=== PATIENT | male | born 1990 | race Two or more races ===

== ENCOUNTER 2017-10-24 22:40 | Emergency (ER) | payer OTHER ==
[~2017-10-24] VITALS: Ht 172.7 cm; Wt 59.0 kg
[~2017-10-24 22:40] MED LIST: CEPH500C24 PO; HYDR-4309 PO
[2017-10-24 22:45] VITALS: BP 127/71
--- NOTE | 2017-10-24 23:01 | ER Report ---
History and Physical Time Seen By MD: 22:50 Hx. of Stated Complaint: C/O SORE THORAT, LEFT EAR PAIN. SINUS PRESSURE HPI/ROS CHIEF COMPLAINT: Left ear pain HISTORY OF PRESENT ILLNESS: 27-year-old male presents ambulatory to the ER complaining of left ear pain, sore throat for 3 days. Patient describes illness and chills. He's had no fevers. Patient's had no drainage from his ear. Patient notes no difficulty swallowing. He's had no cough. He's had no nausea or vomiting. He denies exposure to ill contacts. REVIEW OF SYSTEMS: Respiratory: No cough, no dyspnea. Cardiovascular: No chest pain, no palpitations. Gastrointestinal: No vomiting, no abdominal pain. Musculoskeletal: No back pain. Allergies: Coded Allergies: No Known Drug Allergies (Unverified , 10/24/17) Home Meds Active Scripts Amoxicillin (AMOXICILLIN) 500 Mg Capsule, 1 CAP PO Q8H for infection, #20 CAPSULE Prov:TORREYCARY Moody DO 10/24/17 Ibuprofen (IBUPROFEN) 600 Mg Tablet, 1 TAB PO Q6-8H Y for PAIN, #20 TAB Prov:CARY HIRSCH DO 10/24/17 Discontinued Scripts Cephalexin Monohydrate (CEPHALEXIN) 500 Mg Cap, 500 MG PO 3 times a day, #15 CAP TAKE 1 CAPSULE BY MOUTH EVERY SIX HOURS Prov:ALECIA FAULKNER DO 07/24/14 Hydrocodone Bit/Acetaminophen (NORCO 5-325 TABLET) 1 Each Tablet, 1 EACH PO Q6- 8H, #20 Prov:ALECIA FAULKNER DO 07/24/14 Past Medical/Surgical History Unremarkable Reviewed Nurses Notes: Yes Old Medical Records Reviewed: Yes Hx Smoking: No Smoking Status: Never Smoker Hx Substance Use Disorder: No Constitutional Vital Sign - Last 24 Hours 10/24/17 22:45 Temp 98.5 Pulse 90 Resp 14 B/P (MAP) 127/71 Pulse Ox 96 Physical Exam General Appearance: The patient is alert, has no immediate need for airway protection and no current signs of toxicity.. Vital signs stable, afebrile HEENT: Pupils equal and round no injection. TMs the left TM is erythematous and bulging, oropharynx without redness or exudate Respiratory: Chest is non tender, lungs are clear to auscultation. Cardiac: regular rate and rhythm Gastrointestinal: Abdomen is soft and non tender, no masses, bowel sounds normal. Musculoskeletal: Neck: Neck is supple and non tender. Positive lymphadenopathy Extremities have full range of motion and are non tender. Skin: No rashes or lesions. DIFFERENTIAL DIAGNOSIS: After history and physical exam differential diagnosis was considered for otitis media, TMJ, tooth abscess, pharyngitis, viral syndrome , sinusitis Medical Decision Making ED Course/Re-evaluation ED Course Patient was admitted to an examination room. H&P was done. The dental diagnoses was considered. On conical examination. Patient has appearance of left otitis media and pharyngitis. He does have some lymphadenopathy in the anterior cervical chain on examination. Patient will be covered with amoxicillin for otitis media. Given Motrin for pain. He is advised to follow- up with primary care if unimproved in 3-5 days. Decision to Disposition Date: Oct 24, 2017 Decision to Disposition Time: 23:07 Depart Departure Latest Vital Signs Vital Signs Date Time Temp Pulse Resp B/P (MAP) Pulse Ox O2 Delivery O2 Flow Rate FiO2 10/24/17 22:45 98.5 90 14 127/71 96 Impression: Primary Impression: Otitis media Additional Impression: Lymphadenopathy Condition: Improved Disposition: HOME OR SELF-CARE New Scripts Amoxicillin (AMOXICILLIN) 500 Mg Capsule 1 CAP PO Q8H for infection, #20 CAPSULE Prov: CARY HIRSCH DO 10/24/17 Ibuprofen (IBUPROFEN) 600 Mg Tablet 1 TAB PO Q6-8H Y for PAIN, #20 TAB Prov: CARY HIRSCH DO 10/24/17 Patient Instructions: Otitis Media (ED) Additional Instructions: Take prescriptions as prescribed Drink plenty of fluids Follow-up with your primary care physician if unimproved in 5-7 days Problem Qualifiers Primary Impression: Otitis media Otitis media type: suppurative Chronicity: acute Laterality: left Recurrence: not specified as recurrent Spontaneous tympanic membrane rupture: without spontaneous rupture Qualified Codes: H66.002 - Acute suppurative otitis media without spontaneous rupture of ear drum, left ear CARY HIRSCH DO Oct 24, 2017 23:01
[2017-10-24] MEDS ORDERED: AMOXICILLIN 500 MG CAP PO ONE (23:10)
[2017-10-24] MEDS ORDERED: IBUPROFEN 600 MG TAB TH PO ONE (23:10)
[2017-10-24] MEDS ORDERED: AMOX-362 PO (23:11)
[2017-10-24] MEDS ORDERED: IBUP600T22 PO (23:11)
== END 2017-10-24 23:30 | disposition home or self-care (01) ==
LOC: ER 22:44
DX: H66.002 Acute suppurative otitis media without spontaneous rupture of ear drum, left ear (principal); R59.1 Generalized enlarged lymph nodes
CPT/HCPCS: 99282

== ENCOUNTER 2018-01-15 22:01 | Emergency (ER) | payer OTHER ==
[~2018-01-15 22:01] MED LIST changes: +AMOX-362 PO; +IBUP600T22 PO
[2018-01-15 22:06] VITALS: BP 138/80
--- NOTE | 2018-01-15 22:12 | ER Report ---
History and Physical Time Seen By MD: 22:12 Hx. of Stated Complaint: PATIENT STATES THAT HE HAS HAD AND BAD SORE THROAT SINCE OCTOBER; PATIENT ALSO HAS LEFT SIDED EAR PAIN AND SWOLLEN LYMPH NODES; PATIENT STATES HE HAS HAD HEAD , NECK, AND BACK PAIN WELL HPI/ROS CHIEF COMPLAINT: Sore throat and ear pain HISTORY OF PRESENT ILLNESS: This is a 27-year-old male. He states he has had sore throat since October, couple of months now. Also left-sided ear pain and some swollen lymph nodes around the ear. He also is having muscle and joint aches, mainly describing neck and back pain as well as headache. He also has been having times when he feels hot and sweaty, and feels like these likely represent fever. He has tried using Tylenol and ibuprofen without significant relief. He denies shortness of breath, and no cough. He has a little bit of upper abdominal pain at times but no nausea or vomiting. No problems with bowels or with urination. No rashes. Allergies: Coded Allergies: No Known Drug Allergies (Unverified , 01/15/18) Home Meds Active Scripts Acetaminophen With Codeine # 3 (TYLENOL WITH CODEINE #3 TABLET) 1 Each Tablet, 1 EACH PO Q4H, #8 TAB 0 Refills Prov:LG SALDANA MD 01/15/18 Amoxicillin/Pot Clav 875-125 Mg Tab (AUGMENTIN 875-125 TABLET) 1 Each Tablet, 1 TAB PO Q12H, #20 TAB 0 Refills Prov:LG SALDANA MD 01/15/18 Amoxicillin (AMOXICILLIN) 500 Mg Capsule, 1 CAP PO Q8H for infection, #20 CAPSULE Prov:CARY HIRSCH DO 10/24/17 Ibuprofen (IBUPROFEN) 600 Mg Tablet, 1 TAB PO Q6-8H Y for PAIN, #20 TAB Prov:CARY HIRSCH DO 10/24/17 Reviewed Nurses Notes: Yes Hx Smoking: No Smoking Status: Never Smoker Hx Substance Use Disorder: No Constitutional Vital Sign - Last 24 Hours 01/15/18 22:06 Temp 98.1 Pulse 71 Resp 18 B/P (MAP) 138/80 Pulse Ox 98 O2 Delivery Room Air Physical Exam General Appearance: The patient is alert. No acute distress. Eyes: Pupils are equal, round. Reactive to light. No pallor, injection or icterus. Extraocular movements are intact. ENT: Mucous membranes are moist. Normal oral mucosa. Posterior oropharynx with some erythema, but no exudates or hypertrophy. Nasal mucosa with mild erythema. Normal tympanic membranes and canals. Mild erythema of the skin in the periaruicular area. Neck: Supple and non tender. Has left sided periauricular lymphadenopathy which is small but is tender. Some adenopathy in the left anterior cervical chain. Respiratory: Lungs are clear to auscultation. Cardiovascular: Regular rate and rhythm. No murmurs, gallops or rubs. Gastrointestinal: Abdomen is soft and non tender with some discomfort in the left upper abdomen. Nondistended. Normal active bowel sounds. Neurological: Alert and oriented x3. Skin: Warm and dry. Musculoskeletal: Extremities are nontender. DIFFERENTIAL DIAGNOSIS: After history and physical exam, differential diagnosis was considered for patient with symptoms that could represent mono versus viral infection or influenza. Medical Decision Making Data Points Laboratory Hematology Test 01/15/18 22:24 Monoscreen Negative (NEGATIVE) Influenza Virus Type A (PCR) Negative (NEGATIVE) Influenza Virus Type B (PCR) Negative (NEGATIVE) Group A Streptococcus Screen Negative (NEGATIVE) Chemistry Test 01/15/18 22:24 Monoscreen Negative (NEGATIVE) Influenza Virus Type A (PCR) Negative (NEGATIVE) Influenza Virus Type B (PCR) Negative (NEGATIVE) Group A Streptococcus Screen Negative (NEGATIVE) ED Course/Re-evaluation ED Course Influenza, strep, mono are negative. Patient does have tender lymphadenopathy and some warmth around the periauricular area concerning for possible cellulitis. Recommended starting Augmentin. Use ibuprofen and Tylenol No. 3 for pain. If not improving then recommended seeing your nose and throat specialist. Decision to Disposition Date: Jan 15, 2018 Decision to Disposition Time: 23:14 Depart Departure Latest Vital Signs Vital Signs Date Time Temp Pulse Resp B/P (MAP) Pulse Ox O2 Delivery O2 Flow Rate FiO2 01/15/18 22:06 98.1 71 18 138/80 98 Room Air Impression: Primary Impression: Cellulitis Condition: Improved Disposition: HOME OR SELF-CARE New Scripts Acetaminophen With Codeine # 3 (TYLENOL WITH CODEINE #3 TABLET) 1 Each Tablet 1 EACH PO Q4H, #8 TAB 0 Refills Prov: LG SALDANA MD 01/15/18 Amoxicillin/Pot Clav 875-125 Mg Tab (AUGMENTIN 875-125 TABLET) 1 Each Tablet 1 TAB PO Q12H, #20 TAB 0 Refills Prov: LG SALDANA MD 01/15/18 Patient Instructions: Cellulitis (ED) Additional Instructions: Because of the prolonged nature of the problem and the affect of the skin surrounding the ear, we would like to start you on an antibiotic. Take Augmentin 875/125 twice a day for 10 days. If no improvement, you will want to make an appointment for follow-up with Dr. Zamoar, ENT. Take Ibuprofen 200mg over the counter tablets, 4 every 8 hours as needed for pain. Take Tylenol with Codeine, one every 4 hours as needed for severe pain. Problem Qualifiers Primary Impression: Cellulitis Site of cellulitis: face Qualified Codes: L03.211 - Cellulitis of face LG SALDANA MD Jan 15, 2018 22:12
[2018-01-15] MEDS ORDERED: AMOX/CLAV 875 MG TAB PO ONE (23:15)
[2018-01-15] MEDS ORDERED: ACETAM/CODEINE #3 300-30 MG TH 2 TAB/BOTTLE PO ONE (23:15)
[2018-01-15] MEDS ORDERED: ACET-3017 PO (23:16)
[2018-01-15] MEDS ORDERED: AMOX-559 PO (23:16)
== END 2018-01-15 23:23 | disposition home or self-care (01) ==
LOC: ER 22:10
DX: L03.211 Cellulitis of face (principal)
CPT/HCPCS: 86308; 87081; 87502; 87880; 99282